=== PATIENT | male | born 1960 | race American Indian/Alaskan Native ===

== ENCOUNTER 2019-02-22 08:12 | Emergency (ER) | payer OTHER ==
[2019-02-22] MEDS ORDERED: ASPIRIN PO ONE (08:19)
[2019-02-22] MEDS ORDERED: MORPHINE IV ONE (08:35)
--- NOTE | 2019-02-22 08:41 | XRay Report ---
AP CHEST: HISTORY: chest pain AP view of the chest demonstrates a normal mediastinal and cardiac contour with clear lungs and normal bony and soft tissue structures. IMPRESSION: Unremarkable AP chest.
[2019-02-22 09:00] LABS: Basophils % (Auto) 0.6 % (0.0-1.8); Eosinophils # (Auto) 0.3 K/mm3 (0.0-0.4); Eosinophils % (Auto) 4.1 % (0.0-4.3); Hematocrit 46.6 % (35.5-45.6); Hemoglobin 15.5 gm/dl (11.8-15.2); Lymphocytes # (Auto) 1.5 K/mm3 (1.2-5.4); Lymphocytes % (Auto) 20.5 % (13.4-35.0); Mean Corpuscular HGB Conc 33 % (32-34); Mean Corpuscular Volume 90 fl (84-94); Monocytes # (Auto) 0.8 K/mm3 (0.0-0.8); Monocytes % (Auto) 10.9 % (0.0-7.3); Platelet Count 279 K/mm3 (140-440); Red Blood Count 5.21 M/mm3 (3.65-5.03); Red Cell Distribution Width 13.7 % (13.2-15.2)
[2019-02-22 09:01] LABS: BUN/Creatinine Ratio 10; Blood Urea Nitrogen 7 mg/dL (9-20); Calcium 8.7 mg/dL (8.4-10.2); Hemolysis Index 24
--- NOTE | 2019-02-22 09:50 | Emergency Department Report ---
ED General Adult HPI - General Chief complaint: Chest Pain Stated complaint: CHEST PAIN Time Seen by Provider: 02/22/19 08:34 Source: patient, EMS Mode of arrival: Stretcher Limitations: No Limitations - History of Present Illness Initial comments: Patient is a 58-year-old male past medical history of high blood pressure presents with chest pain answering going on for the last couple of hours. Patient states pain is a 3 out of 10 in the middle of his chest it doesn't radiate anywhere pain he also states he has some mild nausea with no shortness of breath. He also states that he has not been Severity scale (0 -10): 7 - Related Data Allergies Allergy/AdvReac Type Severity Reaction Status Date / Time No Known Allergies Allergy Verified 02/22/19 08:36 ED Review of Systems ROS: Stated complaint: CHEST PAIN Other details as noted in HPI Constitutional: denies: chills, fever Eyes: denies: eye pain, eye discharge, vision change ENT: denies: ear pain, throat pain Respiratory: denies: cough, shortness of breath, wheezing Cardiovascular: chest pain. denies: palpitations Endocrine: no symptoms reported Gastrointestinal: denies: abdominal pain, nausea, diarrhea Genitourinary: denies: urgency, dysuria Musculoskeletal: denies: back pain, joint swelling, arthralgia Skin: denies: rash, lesions Neurological: denies: headache, weakness, paresthesias Psychiatric: denies: anxiety, depression Hematological/Lymphatic: denies: easy bleeding, easy bruising ED Past Medical Hx - Past Medical History Hx Hypertension: Yes Hx Diabetes: Yes Additional medical history: Deppression, PTSD - Social History Smoking Status: Never Smoker Substance Use Type: Alcohol ED Physical Exam - General Limitations: No Limitations General appearance: alert, in no apparent distress - Head Head exam: Present: atraumatic, normocephalic - Eye Eye exam: Present: normal appearance - ENT ENT exam: Present: mucous membranes moist - Neck Neck exam: Present: normal inspection - Respiratory Respiratory exam: Present: normal lung sounds bilaterally. Absent: respiratory distress - Cardiovascular Cardiovascular Exam: Present: regular rate, normal rhythm. Absent: systolic murmur, diastolic murmur, rubs, gallop - GI/Abdominal GI/Abdominal exam: Present: soft, normal bowel sounds - Rectal Rectal exam: Present: deferred - Extremities Exam Extremities exam: Present: normal inspection - Back Exam Back exam: Present: normal inspection - Neurological Exam Neurological exam: Present: alert, oriented X3 - Psychiatric Psychiatric exam: Present: normal affect, normal mood - Skin Skin exam: Present: warm, dry, intact, normal color. Absent: rash ED Course Vital Signs 02/22/19 02/22/19 02/22/19 08:14 08:27 08:29 Temperature 98.3 F Pulse Rate 78 81 77 Respiratory 18 12 12 Rate Blood Pressure 263/153 Blood Pressure 263/183 172/101 [Right] O2 Sat by Pulse 98 98 97 Oximetry 02/22/19 02/22/19 02/22/19 08:30 08:46 09:00 Temperature Pulse Rate 74 68 68 Respiratory 12 12 14 Rate Blood Pressure 172/101 167/97 Blood Pressure [Right] O2 Sat by Pulse 100 96 92 Oximetry 02/22/19 02/22/19 02/22/19 09:30 10:09 10:15 Temperature Pulse Rate 64 62 62 Respiratory 12 14 Rate Blood Pressure 167/97 190/104 Blood Pressure 190/104 [Right] O2 Sat by Pulse 96 96 Oximetry 02/22/19 02/22/19 02/22/19 10:16 10:30 10:46 Temperature Pulse Rate 64 64 64 Respiratory 13 12 16 Rate Blood Pressure 190/104 190/104 190/104 Blood Pressure [Right] O2 Sat by Pulse 95 95 95 Oximetry 02/22/19 12:00 Temperature Pulse Rate 62 Respiratory 13 Rate Blood Pressure 162/93 Blood Pressure [Right] O2 Sat by Pulse 92 Oximetry ED Medical Decision Making - Lab Data Result diagrams: 02/22/19 Unknown 02/22/19 Unknown Lab Results 02/22/19 02/22/19 02/22/19 Range/Units 11:20 Unknown Unknown WBC 7.1 (4.5-11.0) K/mm3 RBC 5.21 H (3.65-5.03) M/mm3 Hgb 15.5 H (11.8-15.2) gm/dl Hct 46.6 H (35.5-45.6) % MCV 90 (84-94) fl MCH 30 (28-32) pg MCHC 33 (32-34) % RDW 13.7 (13.2-15.2) % Plt Count 279 (140-440) K/mm3 Lymph % (Auto) 20.5 (13.4-35.0) % [place] % (Auto) 10.9 H (0.0-7.3) % Eos % (Auto) 4.1 (0.0-4.3) % Baso % (Auto) 0.6 (0.0-1.8) % Lymph # 1.5 (1.2-5.4) K/mm3 [place] # 0.8 (0.0-0.8) K/mm3 Eos # 0.3 (0.0-0.4) K/mm3 Baso # 0.0 (0.0-0.1) K/mm3 Seg Neutrophils % 63.9 (40.0-70.0) % Seg Neutrophils # 4.6 (1.8-7.7) K/mm3 Sodium 138 (137-145) mmol/L Potassium 4.1 (3.6-5.0) mmol/L Chloride 102.5 (98-107) mmol/L Carbon Dioxide 25 (22-30) mmol/L Anion Gap 15 mmol/L BUN 7 L (9-20) mg/dL Creatinine 0.7 L (0.8-1.5) mg/dL Estimated GFR > 60 ml/min BUN/Creatinine Ratio 10 % Glucose 145 H (75-100) mg/dL Calcium 8.7 (8.4-10.2) mg/dL Troponin T < 0.010 < 0.010 (0.00-0.029) ng/mL - EKG Data -: EKG Interpreted by Nh - EKG Data 02/22/19 12:32 EKG shows sinus rhythm left atrial enlargement signs of LVH and T-wave inversions in V4 V5 V6. No axis deviation. - Radiology Data Radiology results: report reviewed, image reviewed Chest x-ray: Shows no acute cardiopulmonary disease - Medical Decision Making Chief medical diagnosis: Chest wall pain Differential diagnosis: Non-STEMI, arrhythmia, electrolyte abnormality, pneumonia I will get chest x-ray IV pain medicine 2 sets of troponin blood work aspirin and I will reassess the patient Patient is feeling better Critical care attestation.: If time is entered above; I have spent that time in minutes in the direct care of this critically ill patient, excluding procedure time. ED Disposition Clinical Impression: Chest pain Qualifiers: Chest pain type: unspecified Qualified Code(s): R07.9 - Chest pain, unspecified Disposition: DC-01 TO HOME OR SELFCARE Is pt being admited?: No Does the pt Need Aspirin: No Condition: Stable Instructions: Chest Pain (ED) [facility] [Primary Care Provider] - 3-5 Days ISAIAH STERLING MD [Staff Physician] - 3-5 Days
[2019-02-22] MEDS ORDERED: ZOFRAN IV ONE (10:07)
[2019-02-22] MEDS ORDERED: CATAPRES PO ONE (10:08)
[2019-02-23 18:33] VITALS: BP 162/93
== END 2019-02-22 13:48 | disposition home or self-care (01) ==
LOC: ED 08:12
DX: R07.89 Other chest pain (principal); I10 Essential (primary) hypertension; E11.9 Type 2 diabetes mellitus without complications
CPT/HCPCS: 71045; 80048; 84484; 85025; 93005; 93010; 96374; 96375; 99285; J2270; J2405; 36415